=== PATIENT | female | born 1945 | race Caucasian/White ===

== ENCOUNTER 2016-09-18 22:14 | Emergency (ER) | payer MEDICARE ==
--- NOTE | 2016-09-19 08:52 | CT ---
HEAD CT WITHOUT CONTRAST HISTORY: Status post fall. No intravenous contrast administered. Contiguous axial images acquired from skull base to vertex. COMPARISON: 04/29/2016 BRAIN VOLUME: Stable moderate volume loss. VENTRICULAR SIZE:No gross ventriculomegaly. FOCAL MASS EFFECT:None. ACUTE INTRACRANIAL HEMORRHAGE:None. CALVARIUM:Grossly intact. VISIBLE PARANASAL SINUSES AND MASTOID AIR CELLS: Minor mucosal thickening in the right maxillary sinus without air-fluid levels. ORBITS: Status post cataract surgery. IMPRESSION: No gross mass effect, depressed calvarial fracture, or acute intracranial hemorrhage. Preliminary report relayed to the Emergency Medicine medical service by Dr. Osuna on 09/18/2016 at 2340 hours.
--- NOTE | 2016-09-19 08:56 | CT ---
MAXILLOFACIAL CT HISTORY: Ground-level fall with left orbital swelling. No intravenous contrast administered contiguous axial images acquired through the maxillofacial structures. Images mildly degraded by motion artifact and dental hardware artifact. FINDINGS: MANDIBLE: Normal alignment of the temporomandibular joints. No displaced fracture identified. PTERYGOID PLATES: Grossly intact. ZYGOMATIC ARCHES: Grossly intact. NASAL BONES: Intact. NASAL SEPTUM: Near midline.. PARANASAL SINUSES: Minor mucosal thickening of the right maxillary sinus, no air-fluid levels. VISIBLE TYMPANOMASTOID CAVITIES: Clear. FRACTURE: No displaced fracture identified. AIRWAY: Grossly patent. ORBITS: No evidence of lens dislocation. Status post cataract surgery. No evidence of retrobulbar hematoma. Soft tissue swelling of preseptal soft tissues on the left. VISIBLE INTRACRANIAL COMPARTMENT: No gross mass effect. Atherosclerotic calcifications of the cavernous carotid arteries. IMPRESSION: Preseptal periorbital soft tissue swelling on the left without evidence of retrobulbar hematoma or lens dislocation. No maxillofacial fracture identified. Preliminary report relayed to the Emergency Medicine medical service by Dr. Osuna on 09/18/2016 at 2340 hours.
== END 2016-09-19 00:25 | disposition home or self-care (01) ==
LOC: ED 22:14
DX: S00.83XA Contusion of other part of head, initial encounter (principal); S06.0X0A Concussion without loss of consciousness, initial encounter; W01.0XXA Fall on same level from slipping, tripping and stumbling without subsequent striking against object, initial encounter; Y93.01 Activity, walking, marching and hiking; Y92.008 Other place in unspecified non-institutional (private) residence as the place of occurrence of the external cause

== ENCOUNTER 2016-09-25 15:30 | Emergency (ER) | payer MEDICARE ==
[2016-09-25] MEDS ORDERED: ASPIRIN CHEWTAB 81 MG TABLET ONE (16:18)
[2016-09-25 16:47] LABS: ABSOLUTE NEUTROPHIL COUNT 4.6 K/mm3 (1.8-7.7); BASO # 0.1 K/mm3 (0.0-0.2); BASO % 0.8 % (0.2-1.0); EOS # 0.2 (0.0-0.5); EOS % 2.6 % (0.9-2.9); HEMATOCRIT 45.4 % (37.0-47.0); HEMOGLOBIN 14.2 gm/l (12.0-16.0); IMM NEUT% 0.3 % (0-1); LYMPH # 1.8 (1.0-4.8); LYMPH % 25.1 % (15-45); MEAN CELL VOLUME 95.2 fl (81.0-99.0); MEAN CORPUSCULAR HEMOGLOBIN 29.8 pg (27.0-31.0); MEAN CORPUSCULAR HGB CONC 31.3 g/dl (33.0-37.0); MEAN PLATELET VOLUME 9.8 fl (7.4-10.4); MONO # 0.7 (0.0-0.8); NEUT % 62.2 % (43-75); PLATELET COUNT 169 K/mm3 (130-400); RED CELL DISTRIBUTION WIDTH 15.1 % (11.5-14.5)
[2016-09-25 17:02] LABS: SPECIFIC GRAVITY 1.025 (1.001-1.030); URINE BILIRUBIN NEGATIVE (NEGATIVE); URINE BLOOD TRACE (NEGATIVE); URINE GLUCOSE (UA) NEGATIVE (NEGATIVE); URINE LEUKOCYTE ESTERASE NEGATIVE (NEGATIVE); URINE NITRITE NEGATIVE (NEGATIVE); URINE PROTEIN NEGATIVE (NEGATIVE); URINE UROBILINOGEN NORMAL (0-1 mg/dl)
[2016-09-25 17:03] LABS: ALB/GLOB RATIO 1.3 (>1.0); ALBUMIN 4.4 gm/dL (3.5-5.7); CALCIUM 9.9 mg/dL (8.6-10.3)
[2016-09-25 17:06] LABS: URINE APPEARANCE CLEAR; URINE COLOR YELLOW
[2016-09-25 17:15] LABS: TROPONIN I < 0.01 ng/ml (0.0-0.06)
[2016-09-25 17:23] LABS: THYROID STIMULATING HORMONE 4.25 uIU/ml (0.34-5.60)
--- NOTE | 2016-09-25 17:37 | CT ---
Exam: CT head without contrast COMPARISON: 09/18/2016, 04/29/2016 INDICATION: Recent fall, adenosis, dementia. TECHNIQUE: CT examination of the head was obtained without contrast. FINDINGS: There is no acute intracranial hemorrhage. There is no abnormal intra or extra-axial fluid collection. Cortical ruiz-white matter differentiation is preserved and there is no mass effect or midline shift. There is moderate to severe global atrophy. Ventricles are normal in size. Small amount of mucosal thickening is again appreciated within the posterior right maxillary sinus. The remainder of the visualized paranasal sinuses and mastoid air cells are well aerated. The remainder the visualized cranial sinuses and mastoid air cells are well aerated. There is no depressed skull fracture. IMPRESSION: No acute intracranial abnormality. Report was uploaded to the EMR at 1732 hours 09/25/2016.
[2016-09-25 18:08] LABS: URINE BACTERIA 0; URINE EPITHELIAL CELLS 0 /hpf; URINE RBC 0-2 /hpf; URINE WBC 0-1 /hpf
--- NOTE | 2016-09-25 20:09 | US ---
Exam: Bilateral Carotid Artery Ultrasound Comparison: None. History: Mental status changes. Patient describes visual changes. Carotid duplex criteria: Measurement of carotid stenosis is based on velocity parameters that correlate the residual internal carotid diameter with [place] Symptomatic Carotid Endarterectomy Trial (NASCET)- based stenosis levels. Grayscale and Doppler interrogation was utilized. Findings: Dense calcified shadowing plaque formation is seen in the left carotid artery bifurcation and proximal to mid left internal carotid artery. No significant plaque formation is seen on the right. Peak systolic velocities are as follows, in cm/sec: RIGHT: Common carotid artery proximal/mid: 120 Common carotid artery distally: 60 Bulb: 57 Proximal internal carotid artery: 63 Mid internal carotid artery: 59 Distal internal carotid artery: 52 External carotid artery: 120 ICA/CCA ratio: 1.1. Antegrade right vertebral artery flow is present. LEFT: Common carotid artery proximal/mid: 100 Common carotid artery distally: 70 Bulb: 62 Proximal internal carotid artery: 83 Mid internal carotid artery: 108 Distal internal carotid artery: 78 External carotid artery: 133 ICA/CCA ratio: 1.5. Antegrade left vertebral artery flow is present. Impression: 1. Dense calcified plaque formation is seen at the left carotid artery bifurcation and proximal to mid left internal carotid artery. No significant plaque formation is seen in the right. 2. No evidence of hemodynamically significant stenosis within either carotid artery. 3. Antegrade flow within the vertebral arteries. Report was uploaded to the EMR at 2005 hours 09/25/2016.
== END 2016-09-25 20:14 | disposition home or self-care (01) ==
LOC: ED 15:30
DX: R48.1 Agnosia (principal); I10 Essential (primary) hypertension; E11.9 Type 2 diabetes mellitus without complications; F03.90 Unspecified dementia, unspecified severity, without behavioral disturbance, psychotic disturbance, mood disturbance, and anxiety
CPT/HCPCS: 85025; 80053; 84443; 84484; 81001; 70450; 99284 ×2; 51701; 93880; A9270